=== PATIENT | male | born 1950 | race African-American/Black ===

== ENCOUNTER 2018-10-01 06:01 | Inpatient (IN) | payer MEDICARE, MEDICAID, OTHER ==
[~2018-10-01] VITALS: Ht 177.8 cm; Wt 173.7 kg
[2018-10-01] MEDS ORDERED: MORPHINE SULFATE 4 MG/ML CPJ (NOT FOR IM USE) IV STA (07:08)
[2018-10-01] MEDS ORDERED: ONDANSETRON HCL 4MG/2ML INJ IV STA (07:08)
[2018-10-01] MEDS ORDERED: VANCOMYCIN 1 G PREMIX 200 ML IV SCH (07:15)
[2018-10-01 07:29] LABS: CHLORIDE 106 mEq/L (98-107)
[2018-10-01 07:40] LABS: HEMATOCRIT. 34.7 % (42.0-52.0); HEMOGLOBIN. 10.4 g/dL (14.0-18.0); MEAN CORPUSCULAR HEMOGLOBIN 19.5 pg (28.0-32.0); MEAN CORPUSCULAR VOLUME 64.9 fL (80.0-94.0); RED BLOOD CELL COUNT 5.35 mill/uL (4.7-6.1); RED CELL DISTRIBUTION WIDTH 20.6 % (11.6-14.6)
[2018-10-01] MEDS ORDERED: FUROSEMIDE 40MG/4ML VIAL IVP ONE (09:00)
[2018-10-01 10:52] LABS: MEAN PLATELET VOLUME 10.5 fl (7.4-10.4); PLATELET ESTIMATE NORMAL
[2018-10-01 10:53] LABS: PLATELET 190 x1000/uL (130-400)
[2018-10-01] MEDS ORDERED: ONDANSETRON HCL 4MG/2ML INJ IV PRN (13:45)
[2018-10-01] MEDS ORDERED: ACETAMINOPHEN 325MG TABLET PO PRN (13:45)
[2018-10-01 14:00] VITALS: BP 133/87
[2018-10-01] MEDS: FUROSEMIDE 40MG/4ML VIAL IVP SCH ×2 (15:42→18:43)
[2018-10-01 16:00] VITALS: BP 136/88
[2018-10-01] MEDS ORDERED: HYDROCODONE/ACETAMINOPHEN 5/325MG TABLET PO PRN (16:45)
[2018-10-01] MEDS ORDERED: CLONIDINE 0.1MG TABLET PO PRN (17:00)
[2018-10-01] MEDS: MORPHINE SULFATE 4 MG/ML CPJ (NOT FOR IM USE) IV PRN (19:53)
[2018-10-01 19:57] VITALS: BP 133/87
[2018-10-01 20:55] VITALS: BP 150/97
[2018-10-01] MEDS: ENOXAPARIN 40MG/0.4ML SYR SUBCUT SCH (21:31)
[2018-10-01] MEDS: CLINDAMYCIN 900 MG in DEXTROSE 5% WATER 50 ML IV SCH (21:31)
[2018-10-01] MEDS ORDERED: INFLUENZA VIRUS VACCINE(AFLURIA) 0.5ML SYR IM ONE (23:00)
[2018-10-01] MEDS ORDERED: PNEUMOCOCCAL 23-VAL P-SAC VAC 0.5 ML IM ONE (23:00)
[2018-10-02] VITALS: BP 165/88
[2018-10-02] MEDS: CLINDAMYCIN 900 MG in DEXTROSE 5% WATER 50 ML IV SCH ×3 (02:10→19:02)
[2018-10-02 04:00] VITALS: BP 147/85
[2018-10-02 08:00] VITALS: BP 122/85
[2018-10-02 08:01] LABS: BASOPHILS % 0.9 % (0.0-2.0); EOSINOPHILS % 2.2 % (0.0-5.0); HEMATOCRIT. 36.3 % (42.0-52.0); HEMOGLOBIN. 10.5 g/dL (14.0-18.0); LYMPHOCYTES % 25.1 % (20.0-50.0); MEAN CORPUSCULAR HEMOGLOBIN 19.2 pg (28.0-32.0); MEAN CORPUSCULAR VOLUME 66.6 fL (80.0-94.0); MONOCYTES % 14.2 % (2.0-8.0); NEUTROPHILS % 57.6 % (40.0-76.0); RED BLOOD CELL COUNT 5.46 mill/uL (4.7-6.1); RED CELL DISTRIBUTION WIDTH 21.2 % (11.6-14.6)
[2018-10-02 09:05] LABS: PLATELET 147 x1000/uL (130-400)
[2018-10-02 09:46] LABS: CHLORIDE 106 mEq/L (98-107)
[2018-10-02] MEDS: ENOXAPARIN 40MG/0.4ML SYR SUBCUT SCH ×2 (10:13→21:24)
[2018-10-02] MEDS: FUROSEMIDE 40MG/4ML VIAL IVP SCH ×2 (10:13→17:10)
[2018-10-02] MEDS: MORPHINE SULFATE 4 MG/ML CPJ (NOT FOR IM USE) IV PRN (10:46)
[2018-10-02 12:30] VITALS: BP 118/80
[2018-10-02] MEDS: CARVEDILOL 6.25 MG TABLET PO SCH ×2 (12:48→21:24)
[2018-10-02 16:20] VITALS: BP 134/93
[2018-10-02 20:15] LABS: CLARITY URINE CLOUDY (CLEAR); COLOR URINE DARK YELLOW (YELLOW); KETONES URINE TRACE (NEGATIVE); LEUKOCYTE ESTERASE URINE TRACE (NEGATIVE); NITRITE URINE NEGATIVE (NEGATIVE); OCCULT BLOOD URINE NEGATIVE (NEGATIVE); PROTEIN URINE 2+ (NEGATIVE); SPECIFIC GRAVITY URINE 1.019 (1.005-1.030)
[2018-10-02 20:39] LABS: *AMPHETAMINES SCREEN URINE NEGATIVE (NEGATIVE); *BARBITURATES SCREEN URINE NEGATIVE (NEGATIVE); *BENZODIAZEPINES SCREEN URINE NEGATIVE (NEGATIVE); METHADONE URINE SCREEN NEGATIVE (NEGATIVE)
[2018-10-02 20:40] LABS: *COCAINE SCREEN URINE NEGATIVE (NEGATIVE); CANNABINOID URINE SCREEN NEGATIVE (NEGATIVE); OPIATES URINE SCREEN PRESUMTIVE POSITIVE (NEGATIVE); PHENCYCLIDINE URINE SCREEN NEGATIVE (NEGATIVE)
[2018-10-02 20:41] VITALS: BP 137/79
[2018-10-02] MEDS ORDERED: IPRATROPIUM/ALBUTEROL 0.5-3(2.5)MG/3ML NEB HHN PRN (23:15)
[2018-10-02] MEDS ORDERED: ZOLPIDEM TARTRATE 5MG TABLET PO PRN (23:15)
[2018-10-03] VITALS: BP 118/52
[2018-10-03] MEDS: CLINDAMYCIN 900 MG in DEXTROSE 5% WATER 50 ML IV SCH ×4 (01:46→16:37)
[2018-10-03 04:00] VITALS: BP 126/68
[2018-10-03 08:00] VITALS: BP 100/77
[2018-10-03] MEDS: ENOXAPARIN 40MG/0.4ML SYR SUBCUT SCH (09:00)
[2018-10-03] MEDS: CARVEDILOL 6.25 MG TABLET PO SCH (09:00)
[2018-10-03] MEDS: FUROSEMIDE 40MG/4ML VIAL IVP SCH ×3 (09:00→16:37)
[2018-10-03] MEDS ORDERED: SUCCINYLCHOLINE CHLORIDE 200MG/10ML IV ONE (10:22)
[2018-10-03] MEDS ORDERED: ETOMIDATE 2MG/ML 10ML VIAL IV ONE (10:22)
[2018-10-03 12:00] VITALS: BP 123/85
[2018-10-03] MEDS ORDERED: SODIUM BICARBONATE 8.4% MEQ/ML 50ML VIAL IV ONE (13:07)
[2018-10-03] MEDS ORDERED: CALCIUM CHLORIDE 1GM/10ML SYR IV ONE (13:07)
[2018-10-03] MEDS ORDERED: DEXTROSE 50% WATER 50ML VIAL IV ONE (13:07)
[2018-10-03] MEDS ORDERED: EPINEPHRINE 0.1MG/ML (1:10,000) 10ML SYR ONE (13:07)
[2018-10-03] MEDS ORDERED: SPIRONOLACTONE 25MG TABLET PO SCH (14:15)
[2018-10-03 16:00] VITALS: BP 134/86
[2018-10-03 16:25] VITALS: BP 134/86
[2018-10-03] MEDS: MORPHINE SULFATE 4 MG/ML CPJ (NOT FOR IM USE) IV PRN (16:25)
== END 2018-10-03 19:30 | disposition expired | DRG 291 ==
LOC: ER 06:01 → 6WST 12:34 → ENRESERV 13:44
PROVIDERS: ADMIT Internal Medicine; ATTEND Internal Medicine
PROC: 5A12012 Performance of Cardiac Output, Single, Manual (ICD-10-PCS; 2018-10-01)
PROC: 02HV33Z Insertion of Infusion Device into Superior Vena Cava, Percutaneous Approach (ICD-10-PCS; principal; 2018-10-03)
PROC: B548ZZA Ultrasonography of Superior Vena Cava, Guidance (ICD-10-PCS; 2018-10-03)
PROC: 0BH18EZ Insertion of Endotracheal Airway into Trachea, Via Natural or Artificial Opening Endoscopic (ICD-10-PCS; 2018-10-03)
PROC: 5A1935Z Respiratory Ventilation, Less than 24 Consecutive Hours (ICD-10-PCS; 2018-10-03)
DX: I11.0 Hypertensive heart disease with heart failure (principal); I50.21 Acute systolic (congestive) heart failure; E44.0 Moderate protein-calorie malnutrition; L03.90 Cellulitis, unspecified; Z68.43 Body mass index [BMI] 50.0-59.9, adult; E87.2 Acidosis; I42.9 Cardiomyopathy, unspecified; D64.9 Anemia, unspecified; E03.9 Hypothyroidism, unspecified; I46.9 Cardiac arrest, cause unspecified; E66.01 Morbid (severe) obesity due to excess calories; E78.5 Hyperlipidemia, unspecified; G89.29 Other chronic pain; I27.20 Pulmonary hypertension, unspecified; Z71.3 Dietary counseling and surveillance; Z91.19 Patient's noncompliance with other medical treatment and regimen; Z85.038 Personal history of other malignant neoplasm of large intestine
CPT/HCPCS: 36415; 36569; 71045; 76937; 80048; 80061; 80305; 82962; 83605; 83880; 84439; 84443; 84484; 90686; 90732; 92950; 93005; 93306; 93970; 93971; 96365; 96366; 96375; 97162; 99285; A6261; C1725; C1893; J0330; J1650; J1940; J2270; J2405; J3370; J3490; J7050; J7060; J7620